=== PATIENT | male | born 1995 | race Caucasian/White ===

== ENCOUNTER 2017-05-30 15:23 | Emergency (ER) | payer OTHER ==
[~2017-05-30] VITALS: Ht 180.3 cm; Wt 81.6 kg
[~2017-05-30 15:23] MED LIST: ALBUTEROL0.09 MG/A2 INH; AMOXICILLIN500 MG PO; ATARAX25 MG PO; BACTRIM DS 8001 TA1 PO; BENADRYL50 MG PO; DICLOFENAC POTA50 MG PO; ELIMITE 5%60 GM T; HYDROCODONE BIT1 T11 PO; KENALOG0.1% TP; MEDROL DOSEPAK4 MG PO; MOTRIN600 MG PO; MOTRIN800 MG PO; NKHM; NKHM PO; PEN-VEE K500 MG PO; VICODIN 5/500 505 MG PO; ZOVIRAX400 MG PO
[2017-05-30] MEDS ORDERED: AMOXICILLIN500 M2 PO (16:46)
== END 2017-05-30 16:40 | disposition home or self-care (01) ==
LOC: ED 15:23
DX: J02.9 Acute pharyngitis, unspecified (principal); F17.200 Nicotine dependence, unspecified, uncomplicated; F10.10 Alcohol abuse, uncomplicated

== ENCOUNTER 2017-09-12 22:28 | Emergency (ER) | payer OTHER ==
[~2017-09-12] VITALS: Ht 182.8 cm; Wt 79.4 kg
[~2017-09-12 22:28] MED LIST changes: +AMOXICILLIN500 M2 PO
[2017-09-12 22:52] LABS: BILIRUBIN NEGATIVE (NEGATIVE); BLOOD NEGATIVE (NEGATIVE); CLARITY SL CLOUDY (CLEAR); COLOR YELLOW (YELLOW); GLUCOSE NEGATIVE (NEGATIVE); KETONE NEGATIVE (NEGATIVE); LEUKO ESTERASE 1+ (NEGATIVE); NITRITE NEGATIVE (NEGATIVE)
[2017-09-12 23:14] LABS: BACTERIA 4+; WBC 16-20 wbc/hpf (0-5)
[2017-09-15 08:40] LABS: GONOCOCCUS BY NAA Positive (Negative)
== END 2017-09-12 23:52 | disposition home or self-care (01) ==
LOC: ED 22:28
PROVIDERS: Student in an Organized Health Care Education/Training Program
DX: Z11.3 Encounter for screening for infections with a predominantly sexual mode of transmission (principal); F17.200 Nicotine dependence, unspecified, uncomplicated; R11.2 Nausea with vomiting, unspecified; R50.9 Fever, unspecified

== ENCOUNTER 2018-02-28 16:32 | Emergency (ER) | payer OTHER ==
[~2018-02-28] VITALS: Ht 182.8 cm; Wt 81.6 kg
[2018-02-28] MEDS ORDERED: PROAIR HFA8.5 GM INH (17:39)
[2018-02-28] MEDS ORDERED: ANAPROX DS550 MG PO (17:39)
== END 2018-02-28 18:28 | disposition left against medical advice (07) ==
LOC: ED 16:32
DX: R07.81 Pleurodynia (principal); F17.200 Nicotine dependence, unspecified, uncomplicated

== ENCOUNTER 2018-03-12 03:31 | Emergency (ER) | payer OTHER ==
[~2018-03-12] VITALS: Ht 177.8 cm; Wt 77.1 kg
[~2018-03-12 03:31] MED LIST changes: +ANAPROX DS550 MG PO; +PROAIR HFA8.5 GM INH
== END 2018-03-12 03:56 | disposition home or self-care (01) ==
LOC: ED 03:31
DX: Z11.3 Encounter for screening for infections with a predominantly sexual mode of transmission (principal); R36.9 Urethral discharge, unspecified; R20.8 Other disturbances of skin sensation; Z91.048 Other nonmedicinal substance allergy status

== ENCOUNTER 2018-05-15 16:45 | Emergency (ER) | payer OTHER ==
[~2018-05-15] VITALS: Ht 177.8 cm; Wt 81.6 kg
[2018-05-15 17:03] LABS: BILIRUBIN NEGATIVE (NEGATIVE); BLOOD NEGATIVE (NEGATIVE); CLARITY CLEAR (CLEAR); COLOR YELLOW (YELLOW); GLUCOSE NEGATIVE (NEGATIVE); KETONE NEGATIVE (NEGATIVE); LEUKO ESTERASE NEGATIVE (NEGATIVE); NITRITE NEGATIVE (NEGATIVE); PH 6.5 (5.0-9.0); UROBILINOGEN 0.2 E.U./dl (0.2-1.0)
[2018-05-15 17:13] LABS: BACTERIA 1+; MUCOUS 2+
[2018-05-17 17:11] LABS: GONOCOCCUS BY NAA Negative (Negative)
== END 2018-05-15 17:47 | disposition home or self-care (01) ==
LOC: ED 16:45
PROVIDERS: Physician Assistant
DX: R36.9 Urethral discharge, unspecified (principal); R30.9 Painful micturition, unspecified; Z20.2 Contact with and (suspected) exposure to infections with a predominantly sexual mode of transmission; Z88.6 Allergy status to analgesic agent; Z79.1 Long term (current) use of non-steroidal anti-inflammatories (NSAID); Z79.899 Other long term (current) drug therapy

== ENCOUNTER 2019-06-29 15:03 | Emergency (ER) | payer OTHER ==
[~2019-06-29] VITALS: Ht 177.8 cm; Wt 81.6 kg
== END 2019-06-29 15:54 | disposition left against medical advice (07) ==
LOC: ED 15:03
DX: R09.89 Other specified symptoms and signs involving the circulatory and respiratory systems (principal); R05 Cough; R10.9 Unspecified abdominal pain; Z53.21 Procedure and treatment not carried out due to patient leaving prior to being seen by health care provider